=== PATIENT | female | born 1945 | race Two or more races ===

== ENCOUNTER 2017-09-25 15:09 | Emergency (ER) | payer MEDICARE, OTHER ==
[2017-09-25] MEDS ORDERED: TETANUS IMMUNE GLOBULIN PF 250 UNIT DISP.SYRIN. VAX IM (15:45)
[2017-09-25] MEDS: LIDOCAINE 1% PF 2 ML VIAL. INJ (16:08)
[2017-09-25] MEDS: NEOMY/BACITR/POLYMYXIN OINT PACKET. TP (16:09)
[2017-09-25] MEDS: ACETAMINOPHEN 500 MG TABLET PO (16:09)
[2017-09-25] MEDS: TETANUS AND DIPHTHERIA TOX/PF 0.5 ML DISP.SYRIN. VAX IM (16:12)
== END 2017-09-25 17:39 | disposition home or self-care (01) ==
LOC: ER 15:09
DX: S01.81XA Laceration without foreign body of other part of head, initial encounter (principal); I10 Essential (primary) hypertension; W01.0XXA Fall on same level from slipping, tripping and stumbling without subsequent striking against object, initial encounter; Y93.89 Activity, other specified; Y99.8 Other external cause status; Y92.89 Other specified places as the place of occurrence of the external cause
CPT/HCPCS: 12011; 70450; 90471; 90714; 99284-25